=== PATIENT | female | born 1940 | race Hispanic/Latino ===

== ENCOUNTER 2017-12-04 13:35 | Emergency (ER) | payer MEDICARE, BC ==
[2017-12-04 13:50] VITALS: TEMP 98.1
[2017-12-04 13:57] VITALS: BMI 22.4
[2017-12-04] MEDS ORDERED: Morphine 4 mg/ml ISec IVP STA (14:41)
--- NOTE | 2017-12-04 14:44 | ED PDOC ---
Arrival/HPI - General Chief Complaint: Trauma Time Seen by Provider: 12/04/17 14:37 Historian: Patient, Family - History of Present Illness Narrative History of Present Illness (Text): 12/04/17 14:43 Pt p/w + accidental fall, just prior to ED arrival; pt states no witness of the fall occurring just prior to ED arrival; pt states she was at home alone when she tried to get up and walk and because she has bad back pain as well as general weakness as well as a slippery floor, pt slipped and fell; no LOC pre/ post fall; after fall, + stayed on the floor for ~ 1 hour, pt states no fever/ chills/sweats, no cp/sob/palpitations, no abd pain, no n/v, no numbness/tingling , no urinary/bowel incontinence, no rectal/vaginal numbness/tingling; pt states no head pain, no vision changes, no other complaints; pt is here for further eval. pt states 4 days ago, had seen Dr Payan for epidural spinal for pain control ; she has had multiple epidural before; pt states the procedure did not help her this time no slurr speech, no vision changes, no facial changes noted pt is right hand dominate pt lives with family at home Time/Duration: < week (4 days) Symptom Onset: Sudden Symptom Course: Worsening Quality: Throbbing Severity Level: 10, Severe Activities at Onset: Other (moving/trying to get off bed) Context: Home Past Medical History - Provider Review Nursing Documentation Reviewed: Yes - Travel History Have you recently traveled outside [place] w/in the past 3 mons?: No - Past History Past History: No Previous - Infectious Disease Hx of Infectious Diseases: None - Tetanus Immunization Tetanus Immunization: Unknown - Cardiac Hx Cardiac Disorders: Yes Hx Hypertension: Yes - Pulmonary Hx Respiratory Disorders: Yes Hx Chronic Obstructive Pulmonary Disease (COPD): Yes - Neurological Hx Neurological Disorder: No - HEENT Hx HEENT Disorder: No - Renal Hx Renal Disorder: No - Endocrine/Metabolic Hx Endocrine Disorders: No - Hematological/Oncological Hx Blood Disorders: No - Integumentary Hx Dermatological Disorder: No - Musculoskeletal/Rheumatological Hx Musculoskeletal Disorders: Yes Hx Arthritis: Yes Hx Back Pain: Yes Hx Osteoporosis: Yes Hx Unsteady Gait: Yes - Gastrointestinal Hx Gastrointestinal Disorders: Yes Hx Gastroesophageal Reflux: Yes - Genitourinary/Gynecological Hx Genitourinary Disorders: No - Psychiatric Hx Psychophysiologic Disorder: No Hx Depression: No Hx Emotional Abuse: No Hx Physical Abuse: No Hx Substance Use: No - Surgical History Hx Hysterectomy: Yes Hx Musculoskeletal Surgery: Yes (RIGHT KNEE REPLACMENT, LEFT ANKLE SX, RIGHT SHOULDER SX) Other/Comment: Pain management - Epidural - Anesthesia Hx Anesthesia: Yes Hx Anesthesia Reactions: No Hx Malignant Hyperthermia: No - Suicidal Assessment Feels Threatened In Home Enviroment: No Family/Social History - Physician Review Nursing Documentation Reviewed: Yes Family/Social History: No Known Family HX Smoking Status: Never Smoked Hx Alcohol Use: Yes Hx Substance Use: No Hx Substance Use Treatment: No Allergies/Home Meds Allergies/Adverse Reactions: Allergies ibandronate sodium [From Boniva] Allergy (Verified 12/04/17 13:56) RASH pregabalin [From Lyrica] Allergy (Verified 12/04/17 13:56) RASH Home Medications: Home Meds Medication Instructions Recorded Confirmed Sertraline HCl [Zoloft] 25 mg PO DAILY 05/29/14 07/09/17 Levalbuterol HCl [Xopenex 3 ml] 3 ml IH QID 07/13/15 07/09/17 Mometasone [Asmanex Twisthaler 220 220 mcg IH 07/13/15 07/09/17 MCG] Tiotropium [place] Inhaler 1 inhaler INH DAILY 07/13/15 07/09/17 [Spiriva Inhalation Handihaler Device] Dexlansoprazole [Dexilant] 60 mg PO DAILY 07/09/17 07/09/17 Propranolol [Propranolol HCl] 10 mg PO 07/09/17 07/09/17 Valsartan [Diovan] 40 mg PO QOTHERDAY 07/09/17 07/09/17 oxyCODONE/Acetaminophen [Percocet 1 tab PO TID 07/09/17 07/09/17 5/325 mg Tab] rOPINIRole [Requip] 0.25 mg PO DAILY 07/09/17 07/09/17 Review of Systems - Review of Systems Constitutional: Normal Eyes: Normal ENT: Normal Respiratory: Normal Cardiovascular: Normal Gastrointestinal: Normal Genitourinary Female: Normal Musculoskeletal: Back Pain, Neck Pain, Myalgias Skin: Normal Neurological: Normal Endocrine: Normal Hemo/Lymphatic: Normal Psychiatric: Normal Physical Exam Vital Signs Reviewed: Yes Vital Signs Temp Pulse Resp BP Pulse Ox 12/04/17 17:07 104 H 18 127/54 L 95 12/04/17 15:07 145/80 12/04/17 13:44 98.1 F 116 H 16 166/80 H 94 L Temperature: Afebrile Blood Pressure: Hypertensive Pulse: Tachycardic Respiratory Rate: Normal Appearance: Positive for: Well-Appearing, Uncomfortable, Other (resting in bed, uncomfortable, + mild distress due to pain, alert/awake, cooperative, follows commands with ease) Pain Distress: Mild Mental Status: Positive for: Alert and Oriented X 3 - Systems Exam Head: Present: Atraumatic, Normocephalic, Other (mild bi-temporal wasting) Pupils: Present: PERRL, Other (visual field intact b/l, no nystagmus, no photophobia) Extroacular Muscles: Present: EOMI Conjunctiva: Present: Normal Ears: Present: Normal Mouth: Present: Other (mild dry oral mucosa, fair dentitions, no drooling/ stridor, no exudate/lesions) Pharnyx: Present: Normal Nose (External): Present: Atraumatic Nose (Internal): Present: Normal Inspection Neck: Present: Normal Range of Motion, Trachea Midline. No: MIDLINE TENDERNESS Respiratory/Chest: Present: Clear to Auscultation, Good Air Exchange, Other ( CTA b/l, no w/r/r, no tachypenia, no accessory muscle use noted) Cardiovascular: Present: Regular Rate and Rhythm, Normal S1, S2 Abdomen: Present: Normal Bowel Sounds, Other (well nourished female, no focal tenderness, no madrid's sign, no mcburney's point tenderness, no masses/rebound/ guarding/rigidity) Back: Present: Normal Inspection, Other (+ kyphosis; no midline tenderness, + diffuse parathoracic/lumbar tenderness, no open wounds/sores noted, no ecchymosis noted) Upper Extremity: Present: Normal Inspection, Normal ROM, NORMAL PULSES, Neurovascularly Intact, Capillary Refill < 2s Lower Extremity: Present: Normal Inspection, NORMAL PULSES, Neurovascularly Intact. No: Swelling Neurological: Present: GCS=15, CN II-XII Intact, Speech Normal Skin: Present: Warm, Normal Color Psychiatric: Present: Alert, Oriented x 3 Medical Decision Making ED Course and Treatment: 12/04/17 1530 Impression: fall, back pain, cant walk i have consider all the differential diagnosis regarding pt's chief medical complaints/clinical findings, including but are not limited to: r/o fx, acute on chronic back pain A/P: r/o fx, acute on chronic back pain - xray? - ct - labs - pain control - observe - supportive care 12/04/17 1700 pt felt improved, states pain is now 7/10 pt is able to get off the bed and ambulate with min assistance, this is improved compare to initial presentation pt's vitals are much improved pt/family are made aware of pt's medical results is encouraged walking with assistance pt will f/u as directed pt will be discharged home 1800 - Dr Thomas contacted, made aware, agrees with ED mgt/txt, will f/u with patient as outpt next week 12/04/17 18:14 Re-evaluation Time: 15:35 Reassessment Condition: Improved - Lab Interpretations Lab Results: 12/04/17 14:50 12/04/17 14:50 Lab Results 12/04/17 14:50: WBC 8.1 D, RBC 4.24, Hgb 14.7, Hct 42.9, MCV 101.2, MCH 34.7, MCHC 34.3, RDW 13.2, Plt Count 181, MPV 9.7, Gran % 81.8 H, Lymph % (Auto) 7.0 L , [place] % (Auto) 10.9 H, Eos % (Auto) 0.1 L, Baso % (Auto) 0.2, Gran # 6.58 H, Lymph # (Auto) 0.6 L, [place] # (Auto) 0.9 H, Eos # (Auto) 0.0, Baso # (Auto) 0.02 12/04/17 14:50: Sodium 136, Potassium 4.1, Chloride 100, Carbon Dioxide 23, Anion Gap 17, BUN 10, Creatinine 0.8, Est GFR ( Amer) > 60, Est GFR (Non- Af Amer) > 60, Random Glucose 110, Calcium 10.3, Total Bilirubin 0.9, AST 35, ALT 45, Alkaline Phosphatase 72, Troponin I 0.01, Total Protein 7.2, Albumin 4.3 , Globulin 2.9, Albumin/Globulin Ratio 1.5 I have reviewed the lab results: Yes Interpretation: All labs normal - RAD Interpretation Narrative RAD Interpretations (Text): 12/04/17 16:55 CT lumbar spine without IV contrast Indication: extensive back prob, fell today, cant get up Comparison: None available Technique: Noncontrast axial images of the lumbar spine were provided. Sagittal and coronal reformatted images were generated and reviewed. This CT exam was performed using 1 or more of the following dose reduction techniques: Automated exposure control, adjustment of the MAA and/or kV according to patient size, and/or use of iterative reconstruction technique. Total exam DLP: 520.10 MGy-cm Findings: Osseous demineralization limits evaluation for acute fracture lines. Multilevel degenerative changes including intervertebral disc space narrowing and osteophyte formation. Intervertebral joint space narrowing most prominent at L4- L5 with evidence of vacuum disc phenomenon. Minimal retrolisthesis of L4 on L5. Mild loss of height of the L3 vertebral body, similar to prior study Alignment appears otherwise satisfactory. No acute fracture or subluxation identified. Paraspinal soft tissues appear unremarkable. Limited visualization of the intra- abdominal and intrapelvic contents appear unremarkable. Impression: Osseous demineralization. Multilevel degenerative changes as above. Minimal retrolisthesis of L4 on L5. Mild loss of height of the L3 vertebral body similar to prior MRI study performed 02/25/16. No acute fracture or subluxation identified. If high clinical index of suspicion persists, recommend MRI for further evaluation. 12/04/17 16:55 PROCEDURE: CT Thoracic Spine without contrast HISTORY: extensive back prob, fell today, cant get up COMPARISON: None. TECHNIQUE: Axial computed tomography images were obtained of the thoracic spine without intravenous contrast. Coronal and sagittal reformatted images were created and reviewed. Radiation dose: Total exam DLP = 428 mGy-cm. This CT exam was performed using one or more of the following dose reduction techniques: Automated exposure control, adjustment of the mA and/or kV according to patient size, and/or use of iterative reconstruction technique. FINDINGS: VERTEBRAE: Unremarkable. No fracture. Normal alignment. DISCS/SPINAL CANAL/NEURAL FORAMINA: Within the limits of the CT technique, no disc herniation seen. No central canal or neural foraminal stenosis.. PARASPINAL SOFT TISSUES: Unremarkable. OTHER FINDINGS: Unremarkable. IMPRESSION: No acute findings. No evidence of compression fracture 12/04/17 16:55 PROCEDURE: CT Cervical Spine without contrast HISTORY: Extensive back problems. Patient fell COMPARISON: None available. TECHNIQUE: Axial computed tomography images were obtained of the cervical spine without the use of intravenous contrast. Coronal and sagittal reformatted images were created and reviewed. Radiation dose: Total exam DLP = 493 mGy-cm. This CT exam was performed using one or more of the following dose reduction techniques: Automated exposure control, adjustment of the mA and/or kV according to patient size, and/or use of iterative reconstruction technique. FINDINGS: VERTEBRAE: No fracture. Normal alignment. No destructive bony lesion. DISCS/SPINAL CANAL/NEURAL FORAMINA: No significant central canal or neural foraminal stenosis. There is disc degeneration at multiple levels especially C5-6 and C6-7. There is also thickening and calcification of the transverse ligament. There is no significant central stenosis. PARASPINAL SOFT TISSUES: Unremarkable. OTHER FINDINGS: None. IMPRESSION: No acute findings 12/04/17 16:56 PROCEDURE: CT HEAD WITHOUT CONTRAST. HISTORY: accidental fall, no loc COMPARISON: 09/13/2014 TECHNIQUE: Axial computed tomography images were obtained through the head/brain without intravenous contrast. Radiation dose: Total exam DLP = 957 mGy-cm. This CT exam was performed using one or more of the following dose reduction techniques: Automated exposure control, adjustment of the mA and/or kV according to patient size, and/or use of iterative reconstruction technique. FINDINGS: HEMORRHAGE: No intracranial hemorrhage. BRAIN: No mass effect or edema. No atrophy or chronic microvascular ischemic changes. VENTRICLES: Unremarkable. No hydrocephalus. CALVARIUM: Unremarkable. PARANASAL SINUSES: Unremarkable as visualized. No significant inflammatory changes. MASTOID AIR CELLS: Unremarkable as visualized. No inflammatory changes. OTHER FINDINGS: None. IMPRESSION: No acute findings Radiology Orders: 12/04/17 14:37 HEAD W/O CONTRAST [CT] Stat 12/04/17 14:38 CERVICAL SPINE W/O CONTRAST [CT] Stat LUMBAR SPINE W/O CONTRAST [CT] Stat THORACIC SPINE W/O CONT [CT] Stat Turkey Roll Maker: Radiologist - EKG Interpretation EKG Interpretation (Text): 12/04/17 16:26 SINUS tach at 110 bpm, normal axis, no ectopy, qs in leads III, poor R-wave progression, diffuse low voltage, non-specific st-t changes, ABNL EKG; no changes compare with old ekg 04/2014 Interpreted by ED Physician: Yes Type: 12 lead EKG Comparison: Similar to previous EKG - Medication Orders Current Medication Orders: Discontinued Medications Diazepam (Valium) 2 mg PO ONCE ONE PRN Reason: Protocol Stop: 12/04/17 14:42 Last Admin: 12/04/17 15:09 Dose: 2 mg Sodium Chloride (Sodium Chloride 0.9%) 1,000 mls @ 100 mls/hr IV .Q10H JOSE Last Admin: 12/04/17 15:08 Dose: 100 mls/hr eMAR Start Stop Document 12/04/17 15:08 GMD (Rec: 12/04/17 15:08 GMD [id number]) Intravenous Solution Start Date 12/04/17 Start Time 15:08 Ketorolac Tromethamine (Toradol) 15 mg IVP STAT STA Stop: 12/04/17 14:42 Last Admin: 12/04/17 15:09 Dose: 15 mg MAR Pain Assessment Document 12/04/17 15:09 GMD (Rec: 12/04/17 15:09 GMD [id number]) Pain Reassessment Is this a pain reassessment? No Presence of Pain Presence of Pain Yes IVP Administration Document 12/04/17 15:09 GMD (Rec: 12/04/17 15:09 GMD [id number]) Charges for Administration # of IVP Administrations 1 Morphine Sulfate (Morphine) 4 mg IVP STAT STA Stop: 12/04/17 14:42 Last Admin: 12/04/17 15:09 Dose: 4 mg MAR Pain Assessment Document 12/04/17 15:09 GMD (Rec: 12/04/17 15:09 D [id number]) Pain Reassessment Is this a pain reassessment? No Presence of Pain Presence of Pain Yes IVP Administration Document 12/04/17 15:09 GMD (Rec: 12/04/17 15:09 GMD [id number]) Charges for Administration # of IVP Administrations 1 Disposition/Present on Arrival - Present on Arrival Any Indicators Present on Arrival: No History of DVT/PE: No History of Uncontrolled Diabetes: No Urinary Catheter: No History of Decub. Ulcer: No History Surgical Site Infection Following: None - Disposition Have Diagnosis and Disposition been Completed?: Yes Diagnosis: Fall, Back contusion Disposition: HOME/ ROUTINE Disposition Time: 17:02 Patient Plan: Discharge Condition: STABLE Discharge Instructions (ExitCare): Back Pain (ED), Fall Prevention (ED) Print Language: STATELESS Additional Instructions: Make sure to see your doctor in 1-2 days DRINK PLENTY OF FLUIDS MAKE SURE YOU WALK WITH THE WALKER take your medications as prescribed RETURN TO ED IF worse pain, cant breath, persistent vomiting, high fever >101- 102 for hours, urinary/bowel incontinence, altered behavior, unable to urinate, heavy/persistent bleeding, passing out, chest pain, or other medical emergencies Prescriptions: Diazepam [Valium] 2 mg PO TID PRN #12 tablet PRN Reason: Muscle Spasm Referrals: Liban Thomas MD [Primary Care Provider] - Follow up with primary Forms: [employer] (Swedish)
[2017-12-04] MEDS ORDERED: Sodium Chloride 0.9% 1,000 ML IV SCH (14:45)
[2017-12-04 15:24] LABS: ALB/GLOB RATIO 1.5 (1.1-1.8); ALBUMIN 4.3 g/dL (3.0-4.8); ALT/SGPT 45 U/L (7-56); AST/SGOT 35 U/L (14-36); BLOOD UREA NITROGEN 10 mg/dL (7-21); CALCIUM 10.3 mg/dL (8.4-10.5); GFR AFRICAN-AMERICAN > 60; GFR NON-AFRICAN AMERICAN > 60
[2017-12-04 15:26] LABS: BASO # 0.02 K/mm3 (0.0-2.0); BASO % 0.2 % (0.0-3.0); EOS % 0.1 % (1.5-5.0); GRAN # 6.58 (1.4-6.5); GRAN % 81.8 % (50.0-68.0); HEMOGLOBIN 14.7 g/dL (12.0-16.0); LYMPH # 0.6 (1.2-3.4); MEAN CELL VOLUME 101.2 fl (80.0-105.0); MEAN CORPUSCULAR HEMOGLOBIN 34.7 pg (25.0-35.0); MEAN CORPUSCULAR HGB CONC 34.3 g/dl (31.0-37.0); MEAN PLATELET VOLUME 9.7 fl (7.0-11.0); MONO # 0.9 (0.1-0.6); MONO % 10.9 % (1.0-6.0); RBC 4.24 10^6/uL (3.5-6.1); RED CELL DISTRIBUTION WIDTH 13.2 % (11.5-14.5); WHITE BLOOD COUNT 8.1 10^3/ul (4.5-11.0)
[2017-12-04 15:35] LABS: TROPONIN I 0.01 ng/mL
--- NOTE | 2017-12-04 15:47 | CT ---
PROCEDURE: CT HEAD WITHOUT CONTRAST. HISTORY: accidental fall, no loc COMPARISON: 09/13/2014 TECHNIQUE: Axial computed tomography images were obtained through the head/brain without intravenous contrast. Radiation dose: Total exam DLP = 957 mGy-cm. This CT exam was performed using one or more of the following dose reduction techniques: Automated exposure control, adjustment of the mA and/or kV according to patient size, and/or use of iterative reconstruction technique. FINDINGS: HEMORRHAGE: No intracranial hemorrhage. BRAIN: No mass effect or edema. No atrophy or chronic microvascular ischemic changes. VENTRICLES: Unremarkable. No hydrocephalus. CALVARIUM: Unremarkable. PARANASAL SINUSES: Unremarkable as visualized. No significant inflammatory changes. MASTOID AIR CELLS: Unremarkable as visualized. No inflammatory changes. OTHER FINDINGS: None. IMPRESSION: No acute findings
--- NOTE | 2017-12-04 15:50 | CT ---
PROCEDURE: CT Cervical Spine without contrast HISTORY: Extensive back problems. Patient fell COMPARISON: None available. TECHNIQUE: Axial computed tomography images were obtained of the cervical spine without the use of intravenous contrast. Coronal and sagittal reformatted images were created and reviewed. Radiation dose: Total exam DLP = 493 mGy-cm. This CT exam was performed using one or more of the following dose reduction techniques: Automated exposure control, adjustment of the mA and/or kV according to patient size, and/or use of iterative reconstruction technique. FINDINGS: VERTEBRAE: No fracture. Normal alignment. No destructive bony lesion. DISCS/SPINAL CANAL/NEURAL FORAMINA: No significant central canal or neural foraminal stenosis. There is disc degeneration at multiple levels especially C5-6 and C6-7. There is also thickening and calcification of the transverse ligament. There is no significant central stenosis. PARASPINAL SOFT TISSUES: Unremarkable. OTHER FINDINGS: None. IMPRESSION: No acute findings
--- NOTE | 2017-12-04 15:54 | CT ---
PROCEDURE: CT Thoracic Spine without contrast HISTORY: extensive back prob, fell today, cant get up COMPARISON: None. TECHNIQUE: Axial computed tomography images were obtained of the thoracic spine without intravenous contrast. Coronal and sagittal reformatted images were created and reviewed. Radiation dose: Total exam DLP = 428 mGy-cm. This CT exam was performed using one or more of the following dose reduction techniques: Automated exposure control, adjustment of the mA and/or kV according to patient size, and/or use of iterative reconstruction technique. FINDINGS: VERTEBRAE: Unremarkable. No fracture. Normal alignment. DISCS/SPINAL CANAL/NEURAL FORAMINA: Within the limits of the CT technique, no disc herniation seen. No central canal or neural foraminal stenosis.. PARASPINAL SOFT TISSUES: Unremarkable. OTHER FINDINGS: Unremarkable. IMPRESSION: No acute findings. No evidence of compression fracture
--- NOTE | 2017-12-04 16:28 | CT ---
CT lumbar spine without IV contrast Indication: extensive back prob, fell today, cant get up Comparison: None available Technique: Noncontrast axial images of the lumbar spine were provided. Sagittal and coronal reformatted images were generated and reviewed. This CT exam was performed using 1 or more of the following dose reduction techniques: Automated exposure control, adjustment of the MAA and/or kV according to patient size, and/or use of iterative reconstruction technique. Total exam DLP: 520.10 MGy-cm Findings: Osseous demineralization limits evaluation for acute fracture lines. Multilevel degenerative changes including intervertebral disc space narrowing and osteophyte formation. Intervertebral joint space narrowing most prominent at L4-L5 with evidence of vacuum disc phenomenon. Minimal retrolisthesis of L4 on L5. Mild loss of height of the L3 vertebral body, similar to prior study Alignment appears otherwise satisfactory. No acute fracture or subluxation identified. Paraspinal soft tissues appear unremarkable. Limited visualization of the intra-abdominal and intrapelvic contents appear unremarkable. Impression: Osseous demineralization. Multilevel degenerative changes as above. Minimal retrolisthesis of L4 on L5. Mild loss of height of the L3 vertebral body similar to prior MRI study performed 02/25/16. No acute fracture or subluxation identified. If high clinical index of suspicion persists, recommend MRI for further evaluation.
[2017-12-04 17:08] VITALS: BP 127/54; PULSE 104; RESP 18; O2SAT 95
--- NOTE | 2017-12-05 14:44 | CARD ---
APPROVED REPORT EKG Measurement Heart [id number] MS [id number] <Conclusion> Sinus tachycardia T wave abnormality, consider anterior ischemia Abnormal ECG
== END 2017-12-04 17:38 | disposition home or self-care (01) ==
LOC: ED 13:35
DX: M54.9 Dorsalgia, unspecified (principal); W01.0XXA Fall on same level from slipping, tripping and stumbling without subsequent striking against object, initial encounter; S20.229A Contusion of unspecified back wall of thorax, initial encounter; I10 Essential (primary) hypertension; J44.9 Chronic obstructive pulmonary disease, unspecified
CPT/HCPCS: 70450; 72125; 72128; 72131; 80053; 84484; 85025; 93005; 96374; 96375; 99285; J1885; J2270; J7040

== ENCOUNTER 2018-11-24 05:33 | Day surgery (SDC) | payer MEDICARE, BC ==
[2018-11-23 14:00] VITALS: BMI 23.5
[2018-11-24 07:11] LABS: BASO # 0.05 K/mm3 (0.0-2.0); BASO % 0.8 % (0.0-3.0); EOS # 0.3 (0.0-0.7); GRAN # 2.52 (1.4-6.5); GRAN % 42.5 % (50.0-68.0); HEMOGLOBIN 12.1 g/dL (12.0-16.0); LYMPH # 2.4 (1.2-3.4); LYMPH % 40.8 % (22.0-35.0); MEAN CELL VOLUME 102.4 fl (80.0-105.0); MEAN CORPUSCULAR HEMOGLOBIN 32.7 pg (25.0-35.0); MEAN CORPUSCULAR HGB CONC 31.9 g/dl (31.0-37.0); MEAN PLATELET VOLUME 9.4 fl (7.0-11.0); MONO # 0.7 (0.1-0.6); MONO % 10.9 % (1.0-6.0); RBC 3.7 10^6/uL (3.5-6.1); RED CELL DISTRIBUTION WIDTH 13.1 % (11.5-14.5)
[2018-11-24 07:18] LABS: INR 0.88; PARTIAL THROMBOPLASTIN TIME 31.3 Seconds (26.9-38.3)
[2018-11-24 07:23] VITALS: TEMP 97.6
[2018-11-24 07:30] LABS: BLOOD UREA NITROGEN 21 mg/dL (7-21); CALCIUM 9.8 mg/dL (8.4-10.5); GFR NON-AFRICAN AMERICAN 53; HDL CHOLESTEROL 103 mg/dL (29-60)
[2018-11-24 07:35] LABS: LDL CHOLESTEROL 60 mg/dL (0-129)
[2018-11-24] MEDS ORDERED: Iohexol 350mgl/ml 50 ML ONE (07:49)
[2018-11-24] MEDS ORDERED: Iodixanol 320 MG/ML 100 ML BOTTLE IV ONE (07:49)
[2018-11-24] MEDS ORDERED: Lidocaine 2% Inj (20ml) ONE (07:49)
[2018-11-24] MEDS ORDERED: Iodixanol 320 MG/ML 200 ML BOTTLE IV ONE (07:50)
[2018-11-24] MEDS ORDERED: Midazolam 2 MG/2 ML VIAL ONE ×3 (08:18→08:28)
[2018-11-24] MEDS ORDERED: Sodium Chloride 0.9% 1,000 ML IV SCH (09:00)
[2018-11-24] MEDS ORDERED: Oxycodone/Acetaminophen 5/325 mg Tab PO ONE (09:27)
[2018-11-24] MEDS ORDERED: Oxycodone/Acetaminophen 5/325 mg Tab ONE (09:41)
--- NOTE | 2018-11-24 11:42 | CARDCATH ---
PROCEDURE DATE: 11/24/2018 PROCEDURES: 1. Right and left heart catheterization with coronary arteriography, left ventriculogram, supra-aortic valvular injection as well as right heart pressures. HISTORY: The patient is an 78-year-old woman who presented for cardiac catheterization. Patient suffers from COPD, intermittent chest pain and with mild pulmonary hypertension on echocardiogram with occasional dyspnea. She was evaluated by Pulmonary who insisted that a right heart catheterization be performed to evaluate her pulmonary hypertension. After extensive discussion with the patient and her , they insisted that a procedure be done. The right femoral artery was cannulated with a 6-Tunisian sheath. The right femoral vein was cannulated with a 7-Tunisian sheath. There were no complications. I performed moderate sedation which included the presence of an independent trained observer that assisted in monitoring the patient's level of consciousness and physiologic status. After administration of Versed and fentanyl, my intra service time was 15 minutes. The findings on catheterization included right heart pressures revealed a right mean atrial pressure of 3 mmHg, a pulmonary artery pressure of 30/12 mmHg with a mean of 17 mmHg, mean pulmonary capillary wedge pressure was 7 mmHg, there was no gradient across the aortic valve. LVEDP was 5 mmHg. Angiographic studies included a left ventriculogram which revealed normal LV function with an EF of 60%. Her coronary anatomy revealed a right dominant circulation. The RCA revealed diffuse intimal irregularities without critical lesions. The left main artery was unremarkable. The LAD and diagonal vessels revealed intimal irregularities without critical lesions. The LAD in its distal portion tapered down with 50% stenoses in the very distal LAD. The circumflex artery and obtuse marginal branches revealed intimal irregularities without significant stenoses. Supra-aortic valvular injection revealed no aortic insufficiency. Angio-Seal was used to close the right femoral artery site. Hemostasis was obtained with manual compression. The patient tolerated the procedure well. In summary, the procedure revealed no pulmonary hypertension, normal LV function, no aortic insufficiency, and diffuse intimal irregularities in the coronary tree with a tapering distal LAD which revealed a 50% stenosis in the very distal portion. Given these findings, the patient's treatment should be continued medical therapy with baby aspirin as well as a cardiac risk reduction program. There is no evidence for significant pulmonary hypertension. Aaron Lee MD
--- NOTE | 2018-11-24 11:55 | CARD ---
APPROVED REPORT Date of service: 11/24/2018 EKG Measurement Heart [id number] <Conclusion> Normal sinus rhythm Normal ECG
[2018-11-24 12:02] VITALS: RESP 18
[2018-11-24 12:03] VITALS: O2SAT 93
[2018-11-24 12:07] VITALS: BP 102/51; PULSE 76
== END 2018-11-24 15:20 | disposition home or self-care (01) ==
LOC: CATH 05:33
PROVIDERS: ATTEND Internal Medicine Cardiovascular Disease
DX: I25.10 Atherosclerotic heart disease of native coronary artery without angina pectoris (principal); J44.9 Chronic obstructive pulmonary disease, unspecified
CPT/HCPCS: 36415; 80048; 80061; 85025; 85610; 85730; 86850; 86900; 93005; 93460; 93567; 99152; C1760; C1894; C2629; J1644; J2250; J3010; J7030; Q9966

== ENCOUNTER 2019-03-23 11:46 | Outpatient (CLI) | payer MEDICARE, BC | END 2019-03-23 11:47 | disposition home or self-care (01) | LOC: RAD 11:46 ==